=== PATIENT | female | born 1970 | race Caucasian/White ===

== ENCOUNTER → 2024-05-22 | Outpatient (CLI) | payer BC ==
--- NOTE | 2024-05-22 10:04 | MR ---
EXAMINATION TYPE: MR hip RT wo con DATE OF EXAM: 05/22/2024 COMPARISON: Radiograph 05/16/2024 HISTORY: 53-year-old female M25.551 Right hip pain TECHNIQUE: Multiplanar, multisequence images of the right hip were obtained without IV contrast. FINDINGS: There is moderate degenerative change of the right hip with irregular cartilage loss along the weight bearing aspect of the joint. A 9 mm subchondral geode within the superior aspect of the femoral head. Reactive osseous edema particularly on the femoral side of the joint. There is marginal spurring as well. Trace joint effusion likely reactive. No para labral cyst. No hip fracture or AVN. The sacrum and SI joints appear intact. No suspicious bone marrow replacement. The rectus femoris and hamstrings origins as well as the iliopsoas and gluteal insertions appear inta ct. The sciatic nerves show normal course, caliber, and signal intensity. Mild circumferential bladder wall thickening noted. Possibly chronic for the patient. Correlate to ex clude cystitis. A 1.9 cm cystic area within the right adnexa possibly of ovarian etiology. Recommend three-month follow-up pelvic ultrasound to reassess. Otherwise, no abnormal fluid collection in the p prasanth or pelvic lymphadenopathy. IMPRESSION: 1. Moderate right hip OA. Reactive marrow edema along the weightbearing aspect of the femoral head as well as a 9 mm subchondral geode. 2. No hip fracture or AVN.
== END | disposition home or self-care (01) ==
LOC: RADMRIMAIN 06:08
PROVIDERS: ATTEND Orthopaedic Surgery
DX: M16.11 Unilateral primary osteoarthritis, right hip (principal)